=== PATIENT | male | born 1960 | race Caucasian/White ===

== ENCOUNTER 2016-11-28 09:56 | Emergency (ER) | payer SELFPAY ==
[2016-11-28 10:02] VITALS: TEMP 97.7
--- NOTE | 2016-11-28 10:21 | EDPHY ---
HPI/HX/ROS/PE/MDM Narrative: CHIEF COMPLAINT: Left-sided upper back/shoulder pain HPI: This patient is an active 56 year old male referred from urgent care complaining of left-sided back and shoulder pain worsening over four weeks. He has history of exercise-induced heart attack at 38 years old secondary to a left coronary artery bleed and subsequent clot. He has had no further cardiac complications since that time. His current symptoms began with back spasms, which he has had often in the past. Generally this is relieved with muscle relaxants. He has tried multiple treatments for relief including massage, increased or decreased exercise, and dry needling. Ibuprofen has no effect, and the patient took hydrocodone with slight relief. His discomfort gradually moved left underneath scapula, and today he has more diffuse left-sided pain with a pinching sensation in his shoulder. The patient feels better standing than sitting. His pain was severe this morning, so he went to Urgent Care, but given his cardiac history he was referred to the Emergency Department for further evaluation. He denies abdominal pain, shortness of breath, fever, or other associated symptoms. REVIEW OF SYSTEMS: Aside from elements discussed in the HPI, a comprehensive 10-point review of systems was reviewed and is negative. PMH: L4 fracture, rib fractures, [place] SOCIAL HISTORY: Mountain biker. Rock climber. Single. Lives in [place]. PHYSICAL EXAM: General:Patient is alert, in no acute distress. ENT:Eyes are normal to inspection. ENT inspection normal. Neck: Normal inspection. Full range of motion. Respiratory:No respiratory distress. Breath sounds normal bilaterally. Cardiovascular: Regular rate and rhythm. Strong peripheral pulses. Normal cap refill. Abdomen:The abdomen is nontender to palpation. There are no peritoneal signs. There are normal bowel sounds. Back: Tenderness to left side of spine around T4-T5 correction between scapula and spine. Normal to inspection. Skin: Normal color. No rash. Warm and dry. Extremities: Normal appearance. Full range of motion. Neuro: Oriented x3. Normal motor function. Normal sensory function. ED Course: 56 year old male presents with left-sided thoracic back pain onset four weeks ago. He has history of [place] at age 38. Plan for cardiac event rule out. Plan for chest x-ray, labs including CBC, BMP, Troponin, and D-Dimer. I offered MRI, but the patient is concerned regarding cost as he is currently out of his insurance coverage. Chest x-ray normal. Labs unremarkable. 11:38 Reassessed. The patient refuses further workup at this time. Plan to discharge home in good condition with prescription for Percocet and Medrol Dosepak for symptom relief. He will followup for an outpatient imaging study and further workup with his primary care physician or a intelligence specialist. He has been referred to the neurosurgeon test inspection engineer. I discussed the importance of obtaining imaging of his spine within the next two weeks, and strongly recommended he return to the emergency department if he is unable to complete this within the next two weeks. The patient understands and is comfortable with this plan. MDM: This patient presents with musculoskeletal back pain, likely secondary to thoracic disc herniation. Urgent care sent him to the ED for concern of ACS given his prior history, but I see no signs of cardiac event at this time. As noted, patient was offered advanced imaging of his spine, but would like to pursue this workup as an outpatient. He understands I am unable to rule out potential pathologic fracture, tumor, TAD or other disease without further testing. - Data Points Imaging Results: Imaging Impressions Chest X-Ray 11/28/16 10:04 Impression: No acute thoracic abnormality. Imaging: I viewed and interpreted images myself Laboratory Results: Laboratory Results 11/28/16 10:30 11/28/16 10:30 11/28/16 11/28/16 10:30 10:30 WBC 5.83 10^3/uL 10^3/uL (3.80-9.50) RBC 4.92 10^6/uL 10^6/uL (4.40-6.38) Hgb 15.4 g/dL g/dL (13.7-17.5) Hct 44.7 % % (40.0-51.0) MCV 90.9 fL fL (81.5-99.8) MCH 31.3 pg pg (27.9-34.1) MCHC 34.5 g/dL g/dL (32.4-36.7) RDW 11.9 % % (11.5-15.2) Plt Count 301 10^3/uL 10^3/uL (150-400) MPV 8.5 fL L fL (8.7-11.7) Neut % (Auto) 55.9 % % (39.3-74.2) Lymph % (Auto) 29.0 % % (15.0-45.0) [place] % (Auto) 9.8 % % (4.5-13.0) Eos % (Auto) 3.8 % % (0.6-7.6) Baso % (Auto) 1.2 % % (0.3-1.7) Nucleat RBC Rel Count 0.0 % % (0.0-0.2) Absolute Neuts (auto) 3.26 10^3/uL 10^3/uL (1.70-6.50) Absolute Lymphs (auto) 1.69 10^3/uL 10^3/uL (1.00-3.00) Absolute Monos (auto) 0.57 10^3/uL 10^3/uL (0.30-0.80) Absolute Eos (auto) 0.22 10^3/uL 10^3/uL (0.03-0.40) Absolute Basos (auto) 0.07 10^3/uL 10^3/uL (0.02-0.10) Absolute Nucleated RBC 0.00 10^3/uL 10^3/uL (0-0.01) Immature Gran % 0.3 % % (0.0-1.1) Immature Gran # 0.02 10^3/uL 10^3/uL (0.00-0.10) Turbidity Not Reported Sodium 140 mEq/L mEq/L (134-144) Potassium 4.9 mEq/L mEq/L (3.5-5.2) Chloride 102 mEq/L mEq/L (97-110) Carbon Dioxide 25 mEq/l mEq/l (22-31) Anion Gap 13 mEq/L mEq/L (8-16) BUN 14 mg/dL mg/dL (7-23) Creatinine 0.9 mg/dL mg/dL (0.7-1.3) Estimated GFR > 60 Glucose 108 mg/dL H mg/dL (70-100) Calcium 9.6 mg/dL mg/dL (8.5-10.4) Troponin I < 0.012 ng/mL ng/mL (0.000-0.034) Specimen Hemolysis Not Reported General Time Seen by Provider: 11/28/16 10:03 Initial Vital Signs: Initial Vital Signs Temperature (C) 36.5 C 11/28/16 09:58 Heart Rate 86 11/28/16 09:58 Respiratory Rate 16 11/28/16 09:58 Blood Pressure 151/92 H 11/28/16 09:58 O2 Sat (%) 98 11/28/16 09:58 O2 Delivery Mode Room Air Allergies/Adverse Reactions: loratadine [From Claritin-D 12 Hour] Allergy (Intermediate, Verified 08/06/10 10 :21) Other-Enter Comments pseudoephedrine sulfate [From Claritin-D 12 Hour] Allergy (Intermediate, Verified 08/06/10 10:21) Other-Enter Comments HAYFEVER Allergy (Mild, Uncoded 08/06/10 10:22) Other-Enter Comments Home Medications: Medication Instructions Recorded Aspirin 11/28/16 methylPREDNISolone [Medrol Dose 1 each PO AD #1 ea 11/28/16 Paresh] oxyCODONE/APAP 5/325 [Percocet 1 - 2 tab PO Q4H PRN #20 tab 11/28/16 5/325 (*)] Departure - Departure Disposition: Home, Routine, Self-Care Clinical Impression: Back pain Condition: Good Instructions: Back Pain (ED) Additional Instructions: 1. Follow up this week with a intelligence specialist as we discussed for further evaluation. We have referred you to our neurosurgeon test inspection engineer. 2. We recommend that you get imaging of your spine done in the next two weeks. If you cannot get imaging done in that time in an outpatient setting, please return to the emergency department. 3. Take Percocet as prescribed as needed for severe pain. You may also use ibuprofen and Tylenol as directed on the packaging. Do not take Tylenol while you are taking Percocet, as both these medications contain acetaminophen. You can try using a heating pad as well. 4. Take your Medrol Dosepak as prescribed. 5. Return to the emergency department for severe pain, fever, numbness, difficulty walking, change in location or nature of pain or other concerns. Referrals: NONE *PRIMARY CARE P,. [Primary Care Provider] - As per Instructions Mesfin Dasilva MD [Medical Doctor] - As per Instructions Prescriptions: methylPREDNISolone [Medrol Dose Paresh] 1 each PO AD #1 ea oxyCODONE/APAP 5/325 [Percocet 5/325 (*)] 1 - 2 tab PO Q4H PRN #20 tab PRN Reason: Pain, Severe Report Scribed for: Joe Canada Report Scribed by: Rufina Sanchez Date of Report: 11/28/16 Time of Report: 10:41 Physician Review and Approval Statement: Portions of this note were transcribed by an ED scribe. I personally performed the history, physical exam, and medical decision making; and confirm the accuracy of the information in the transcribed note.
--- NOTE | 2016-11-28 10:24 | CPEKG ---
Heart Rate: 70 RR Interval: 857 P-R Interval: 144 QRSD Interval: 92 QT Interval: 372 QTC Interval: 402 P [place]: 65 QRS [place]: 68 T Wave [place]: 51 EKG Severity - NORMAL ECG - EKG Impression: SINUS RHYTHM Electronically Signed By: Nico Wise 01-Dec-2016 15:50:28
[2016-11-28 10:41] LABS: % IMMATURE GRANULYOCYTES 0.3 % (0.0-1.1); ABSOLUTE IMMATURE GRANULOCYTES 0.02 10^3/uL (0.00-0.10); ADD DIFF? NO; ADD MORPH? NO; ADD SCAN? NO; ATYPICAL LYMPHOCYTE FLAG 0 (0-99); FRAGMENT RBC FLAG 0 (0-99); HEMATOCRIT 44.7 % (40.0-51.0); HEMOGLOBIN 15.4 g/dL (13.7-17.5); LEFT SHIFT FLG 0 (0-99); LIPEMIA HEMOLYSIS FLAG 90 (0-99); MEAN CELL HEMOGLOBIN 31.3 pg (27.9-34.1); MEAN CELL HEMOGLOBIN CONCENTR. 34.5 g/dL (32.4-36.7); MEAN CELL VOLUME 90.9 fL (81.5-99.8); MEAN PLATELET VOLUME 8.5 fL (8.7-11.7); PLATELET CLUMPS FLAG 0 (0-99); PLATELET COUNT 301 10^3/uL (150-400); RED BLOOD CELL COUNT 4.92 10^6/uL (4.40-6.38); RED CELL DISTRIBUTION WIDTH 11.9 % (11.5-15.2)
[2016-11-28 11:09] LABS: ANION GAP 13 mEq/L (8-16); CALCIUM 9.6 mg/dL (8.5-10.4); CARBON DIOXIDE 25 mEq/l (22-31); CHLORIDE 102 mEq/L (97-110); CREATININE 0.9 mg/dL (0.7-1.3); GLOMERULAR FILTRATION RATE > 60; GLUCOSE 108 mg/dL (70-100); POTASSIUM 4.9 mEq/L (3.5-5.2); SODIUM 140 mEq/L (134-144)
[2016-11-28 11:21] LABS: TROPONIN I < 0.012 ng/mL (0.000-0.034)
[2016-11-28 11:53] VITALS: BP 130/80; PULSE 72; RESP 14; O2SAT 96
== END 2016-11-28 11:53 | disposition home or self-care (01) ==
DX: M54.6 Pain in thoracic spine (principal); I25.2 Old myocardial infarction; Z79.82 Long term (current) use of aspirin